=== PATIENT | male | born 1970 | race Two or more races ===

== ENCOUNTER 2016-11-15 07:47 | Emergency (ER) | payer MEDICAID ==
[~2016-11-15] VITALS: Ht 177.8 cm; Wt 76.7 kg
[~2016-11-15 07:47] MED LIST: IBUP800T41; PHEN100C70
[2016-11-15] MEDS ORDERED: SODIUM CHLORIDE 0.9% 1,000 ML IVB ONE (08:51)
[2016-11-15] MEDS ORDERED: NALBUPHINE HCL 10 MG/1ml INJECTION IV ONE (09:00)
[2016-11-15] MEDS ORDERED: PROMETHAZINE HCL 25 MG/ML 1ML IV PRN (09:00)
[2016-11-15 09:06] LABS: CONDITION Y; Hematocrit 49.1 % (41.0-53.0); Hemoglobin 16.8 g/dL (13.5-17.5); Mean Corpuscular Hemoglobin 30.8 pg (28.0-32.0); Mean Corpuscular Hgb Conc. 34.3 g/dL (32.0-36.0); Mean Corpuscular Volume 89.7 fL (80.0-100.0); Mean Platelet Volume 8.5 fL (7.4-10.4); Platelet Count (auto) 191 10^3/uL (140-450); Red Cell Distribution Width 13.6 % (11.6-16.0); SUSPECT SEE PRINTOUT; White Blood Cell 6.9 10^3/uL (4.4-10.8)
[2016-11-15 09:16] LABS: Promyelocytes % 0; Reactive Lymphocytes 0
[2016-11-15 09:35] LABS: Albumin 3.6 g/dL (3.4-5.0); BUN/Creatinine Ratio 20.1; Bilirubin, Total 0.4 mg/dL (0.2-1.0); Calcium 8.5 mg/dL (8.5-10.1); Magnesium 2.5 mg/dL (1.6-2.6); Total Protein 8.5 g/dL (6.4-8.2)
[2016-11-15 09:37] LABS: Potassium 2.9 mmol/L (3.5-5.1)
[2016-11-15] MEDS ORDERED: POTASSIUM CHL 10% (20 MEQ/15ML) ORAL SOLN PO ONE (09:45)
[2016-11-15 10:28] LABS: Metamyelocytes % 1; Myelocytes % 1
[2016-11-15 10:29] LABS: Platelet Estimate Adequate
[2016-11-15 11:38] LABS: Urine Bilirubin Negative (Negative); Urine Color Yellow (Yellow); Urine Glucose Normal (Normal); Urine Hyaline Cast FEW /lpf (0 - 2); Urine Ketone Negative (Negative); Urine Mucus FEW (None Seen); Urine Nitrite Negative (Negative); Urine RBC 11 /hpf (0 - 3); Urine Squamous Epithelial Cell FEW /hpf (<5); Urine Urobilinogen Normal (Negative)
[2016-11-15 11:44] LABS: Urine Blood 2+ /uL (Negative)
[2016-11-15 12:30] VITALS: BP 105/73
== END 2016-11-15 12:35 | disposition home or self-care (01) ==
LOC: ER 07:47
DX: K52.9 Noninfective gastroenteritis and colitis, unspecified (principal); N39.0 Urinary tract infection, site not specified; E87.6 Hypokalemia; N28.9 Disorder of kidney and ureter, unspecified; Z79.899 Other long term (current) drug therapy
CPT/HCPCS: 36415; 71020; 74176; 80053; 81001; 83690; 83735; 85007; 85027; 93005; 96361; 96374; 96375; 99285; J2300; J2550; J7030

== ENCOUNTER 2022-05-28 09:03 | Emergency (ER) | payer MEDICAID ==
[~2022-05-28] VITALS: Ht 177.8 cm; Wt 82.8 kg
[~2022-05-28 09:03] MED LIST changes: +PHEN100C; -PHEN100C70
[2022-05-28 09:41] LABS: Basophils # (auto) 0 10 ^3/uL (0-0.2); Basophils % (auto) 0.4 % (0.0-2.0); Eosinophils # (auto) 0.3 10 ^3/uL (0-0.8); Eosinophils % (auto) 3.7 % (0.0-7.0); Hematocrit 45.6 % (41.0-53.0); Hemoglobin 15.3 g/dL (13.5-17.5); Lymphocytes # (auto) 1.4 10 ^3/uL (0.4-5.4); Lymphocytes % (auto) 18.9 % (10.0-50.0); Mean Corpuscular Hgb Conc. 33.6 g/dL (32.0-36.0); Mean Corpuscular Volume 89.2 fL (80.0-100.0); Monocytes # (auto) 0.6 10 ^3/uL (0-1.3); Monocytes % (auto) 7.7 % (0.0-12.0); Neutrophils # (auto) 5.1 10 ^3/uL (1.6-8.6); Neutrophils % (auto) 69.3 % (37.0-80.0); Red Blood Cells 5.11 10^6/uL (4.5-5.90); Red Cell Distribution Width 13.9 % (11.8-14.3); White Blood Cell 7.3 10^3/uL (4.4-10.8)
[2022-05-28 10:02] LABS: Urine Bacteria NONE SEEN /hpf (None Seen); Urine Blood 1+ /uL (Negative); Urine Specific Gravity 1.016 (1.001-1.035); Urine WBC 1 /hpf (0 - 3)
[2022-05-28 10:06] LABS: Potassium 4.5 mmol/L (3.5-5.1)
[2022-05-28 10:12] LABS: Albumin 3.9 g/dL (3.4-5.0); BUN/Creatinine Ratio 19.2; Bilirubin, Total 0.3 mg/dL (0.2-1.0); Calcium 8.9 mg/dL (8.5-10.1); Total Protein 7.6 g/dL (6.4-8.2)
[2022-05-28 18:21] VITALS: BP 145/77
== END 2022-05-28 18:28 | disposition home or self-care (01) ==
LOC: ER 09:03
DX: R10.31 Right lower quadrant pain (principal); R30.0 Dysuria
CPT/HCPCS: 36415; 74176; 80053; 81001; 83690; 84484; 85025; 93005